=== PATIENT | female | born 1990 | race Caucasian/White ===

== ENCOUNTER 2021-09-15 21:07 | Emergency (ER) | payer OTHER ==
[~2021-09-15] VITALS: Ht 175.3 cm; Wt 110.7 kg
[2021-09-15 21:23] VITALS: BP 155/89
--- NOTE | 2021-09-15 21:27 | NUR ---
PT TAKEN TO LOBBY
--- NOTE | 2021-09-15 22:56 | NUR ---
31 YO/F BIB SELF W C/O R CALF THROBBING PAIN + SWELLING X2-3 DAYS /10 WORSENING UPON WALKING OR STANDING. PT DENIES ANY INJURIES, FEVERS, CHILLS OR OTHER SYMPTOMS. PT DENIES TAKING ANYTHING FOR PAIN. PMH: DIABETES ALLERGIES: DENIES
[2021-09-15] MEDS: ACETAMINOPHEN EXTRA STRENGTH 500 MG TAB PO ONE (23:27)
[2021-09-15] MEDS ORDERED: IBUP-2213 PO (23:45)
--- NOTE | 2021-09-15 23:55 | NUR ---
31YR FEMALE BIB SELF. C/0 R CALF PAIN X2-3 DAYS. PT STATES NOTICED SWELLING TODAY. PAIN 5/10. NKDA. HX DM HTN. PT IN BED WITH SIDERAILS UP.
[2021-09-16 00:03] VITALS: BP 147/89
--- NOTE | 2021-09-16 00:03 | NUR ---
Note undone in EDM - 09/16/21 at 0516 by MNURPM 31YR FEMALE BIB SELF. C/0 R CALF PAIN X2-3 DAYS. PT STATES NOTICED SWELLING TODAY. PAIN 5/10. NKDA. HX DM HTN. PT IN BED WITH SIDERAILS UP.
--- NOTE | 2021-09-16 00:03 | NUR ---
Leobardo [email or web address] in [facility] - 09/16/21 at 0506 by ELLY The patient's care was reviewed and supervised by Rajani Blood RN.
--- NOTE | 2021-09-16 00:03 | NUR ---
Patient discharged with v/s stable.Patient alert, oriented and verbalized understanding of instructions. Ambulatory with steady gait. All questions addressed prior to discharge. ID band removed. Patient advised to follow up with PMD. Rx of IBUPROFEN given.
--- NOTE | 2021-09-16 00:04 | NUR ---
The patient's care was reviewed and supervised by Rajani Blood RN.
== END 2021-09-16 00:03 | disposition home or self-care (01) ==
LOC: MED 21:07
DX: M79.605 Pain in left leg (principal); E11.9 Type 2 diabetes mellitus without complications; F12.90 Cannabis use, unspecified, uncomplicated; Z79.84 Long term (current) use of oral hypoglycemic drugs; Z79.899 Other long term (current) drug therapy
CPT/HCPCS: 93971; 99284; Q0092

== ENCOUNTER 2023-07-06 20:32 | Emergency (ER) | payer OTHER ==
[~2023-07-06] VITALS: Ht 175.3 cm; Wt 111.1 kg
[~2023-07-06 20:32] MED LIST: IBUP-2213 PO
[2023-07-06 21:21] VITALS: BP 163/122; PULSE 136; RESP 20; TEMP 98; O2SAT 98
== END 2023-07-06 22:55 | disposition left against medical advice (07) ==
LOC: MED 20:32
DX: M79.671 Pain in right foot (principal); Z53.21 Procedure and treatment not carried out due to patient leaving prior to being seen by health care provider
CPT/HCPCS: 73630; 99281